=== PATIENT | female | born 1955 | race Caucasian/White ===

== ENCOUNTER → 2016-07-28 | Outpatient (CLI) | payer OTHER ==
[~2016-07-28] MED LIST: BARIUM SULFATE 135 ML (E-Z HD) PO ONE; BARIUM SULFATE 454 GM TUBE (E-Z PASTE) PO ONE
--- NOTE | 2016-07-28 17:07 | RADRPT ---
PROCEDURE: Video-fluoroscopy swallowing study. CLINICAL INDICATION: Dysphagia. TECHNIQUE: Fluoroscopic guided video swallowing study was done in conjunction with the speech ther apist. The study was confined to the oral, pharyngeal, and cervical phases of the swallowing mechani sm. 2.3 minutes of fluoroscopy time was used. COMPARISON: No prior study is available for comparison. FINDINGS: There is no aspiration during swallowing. There is deep penetration with nectar-thick, puree, solid , and thin liquids. IMPRESSION: 1. No aspiration. Deep penetration with multiple items. 2. Please refer to the speech therapist's recommendations for future feedings. RPTAT: QQ .Haim Tripp MD, MD Date Time Electronically viewed and signed by .Haim Tripp MD, MD on 07/28/2016 17:07 .R/
== END | disposition home or self-care (01) ==
LOC: RAD 13:41
PROVIDERS: ATTEND Student in an Organized Health Care Education/Training Program
DX: R13.10 Dysphagia, unspecified (principal)
CPT/HCPCS: 74230; 92611; Z7610